=== PATIENT | male | born 1995 | race Caucasian/White ===

== ENCOUNTER 2021-12-08 20:15 | Emergency (ER) | payer OTHER ==
[~2021-12-08] VITALS: Ht 172.7 cm; Wt 81.8 kg
[2021-12-08] MEDS ORDERED: LITH300C3 PO (20:19)
[2021-12-08] MEDS ORDERED: PERTUSS(ACELL),DIPH,TET VAC/PF 0.5 ML SYRINGE IM. ONE (22:00)
[2021-12-08] MEDS: IBUPROFEN 600 MG TABLET PO ONE ×2 (22:13→23:34)
[2021-12-08] MEDS ORDERED: CEPH-558 PO (22:34)
[2021-12-08] MEDS ORDERED: IBUP-2070 PO (22:34)
[2021-12-09] VITALS: BP 129/70
== END 2021-12-09 00:01 | disposition home or self-care (01) ==
LOC: EMS 20:18
DX: S62.637B Displaced fracture of distal phalanx of left little finger, initial encounter for open fracture (principal); F31.9 Bipolar disorder, unspecified; F12.90 Cannabis use, unspecified, uncomplicated; W23.0XXA Caught, crushed, jammed, or pinched between moving objects, initial encounter; Y93.89 Activity, other specified; Y92.89 Other specified places as the place of occurrence of the external cause; Y99.8 Other external cause status
CPT/HCPCS: 90471; 90715; 99283